=== PATIENT | male | born 1975 ===

== ENCOUNTER 2017-01-15 16:27 | Emergency (ER) | END 2017-01-15 16:56 | disposition left against medical advice (07) | LOC: UCEAST 16:27 | DX: T14.8 Other injury of unspecified body region (principal); W57.XXXA Bitten or stung by nonvenomous insect and other nonvenomous arthropods, initial encounter; Y93.9 Activity, unspecified; Y92.9 Unspecified place or not applicable; Y99.9 Unspecified external cause status; Z53.21 Procedure and treatment not carried out due to patient leaving prior to being seen by health care provider ==